=== PATIENT | female | born 1955 | race Caucasian/White ===

== ENCOUNTER 2021-03-05 15:25 | Emergency (ER) | payer MEDICARE ==
[~2021-03-05] VITALS: Ht 170.2 cm; Wt 81.6 kg
[2021-03-05 15:31] VITALS: BP 137/69
[2021-03-05 15:58] LABS: BASOPHILS % (AUTO) 0.5 % (0.0-5.0); HEMATOCRIT 45.7 % (36-48); LYMPHOCYTES % (AUTO) 28.9 % (21.0-51.0); MEAN CORPUSCULAR HEMOGLOBIN 31.9 pg (27.0-33.0); MEAN CORPUSCULAR HGB CONC 33.3 g/dL (32.0-36.0); MEAN CORPUSCULAR VOLUME 95.8 fL (79-99); MONOCYTES % (AUTO) 6.8 % (3.0-13.0); NEUTROPHILS % (AUTO) 62.7 % (40.0-77.0); PLATELET COUNT (AUTO) 266 K/uL (130-400); RED BLOOD CELL COUNT(AUTO) 4.77 MIL/uL (4.00-5.50); RED CELL DISTRIBUTION WIDTH 12.7 % (11.0-15.5); WHITE BLOOD COUNT (AUTO) 10.1 K/uL (4.8-10.8)
[2021-03-05 16:15] LABS: CREATININE 1.1 mg/dL (0.5-1.5)
[2021-03-05 16:20] LABS: ALBUMIN 3.4 g/dL (3.5-5.0); BILIRUBIN,TOTAL 0.2 mg/dL (0.2-1.0); TOTAL PROTEIN, SERUM 7.6 g/dL (6.0-8.3)
[2021-03-05 16:35] LABS: B-TYPE NATRIURETIC PEPTIDE 13 pg/mL (0-100)
[2021-03-05 18:37] VITALS: BP 136/58
== END 2021-03-05 18:47 | disposition home or self-care (01) ==
LOC: EDH 15:25
DX: R07.89 Other chest pain (principal); J44.9 Chronic obstructive pulmonary disease, unspecified; F31.9 Bipolar disorder, unspecified; I25.2 Old myocardial infarction; Z88.5 Allergy status to narcotic agent
CPT/HCPCS: 36415; 71045; 80053; 83880; 84484; 85025; 93005